=== PATIENT | female | born 2000 | race Two or more races ===

== ENCOUNTER 2024-01-05 03:30 | Emergency (ER) | payer MEDICAID, SELFPAY ==
[2024-01-05 03:31] VITALS: BMI 28.3
[2024-01-05 03:36] VITALS: BP 104/71; PULSE 81; RESP 18; TEMP 36.6; O2SAT 97
--- NOTE | 2024-01-05 03:50 | EKG_ITS ---
[facility] Test Date: 2024-01-05 Pat Name: DEANDRE PENNINGTON Department: Room: - Gender: Female [employer]: : 2000 Requested By: Stefan Sebastian Order Number: [id number] Reading MD: Stefan Sebastian Measurements Intervals Rhine Rate: 83 P: 63 CT: 145 QRS: 61 QRSD: 85 T: 11 QT: 356 QTc: 420 Interpretive Statements SINUS RHYTHM NONSPECIFIC T-WAVE ABNORMALITY No previous ECG available for comparison /store/S0/[id number]/ecg/[id number].pdf
--- NOTE | 2024-01-05 04:04 | PD.EDCHEST ---
ED Chest Pain RME/HPI General Chief Complaint: Back Pain/Injury Stated Complaint: BACK AND CHEST PAIN Time Seen by Provider: 01/05/24 03:50 Arrival date/time: 01/05/24 03:30 23F with no significant PMH presents to ED with several days of back and chest pain. Patient had back pain all throughout her (delivery 4 months ago), but starting yesterday had some CP that scared her. Patient denies SOB and URI symptoms. Limitations: no limitations Related Data Home Medications ?Medication ?Instructions ?Recorded ?Confirmed prenat.vits,mikey,[id number] 1 tab PO QDAY 02/24/20 08/11/23 Previous Rx's ?Medication ?Instructions ?Recorded ferrous sulfate 325 mg (65 mg 325 mg PO QDAY #30 tabs 04/27/20 iron) tablet Allergies Allergy/AdvReac Type Severity Reaction Status Date / Time No Known Allergies Allergy Verified 08/11/23 11:07 Past Medical History Past Medical History NEUROLOGIC: Negative Neurological Disorders or Seizures CARDIAC: Negative Cardiac Disorders or Congestive Heart Failure RESPIRATORY: Negative Chronic Obstructive Pulmonary Disease (COPD) or Asthma GASTROINTESTINAL: Negative Gastrointestinal Disorders, Hepatitis or Colorectal Cancer GENITOURINARY: Negative Genitourinary Disorders, Renal Disease or Prostate Cancer REPRODUCTIVE: Negative Breast Cancer or Testicular Cancer MUSCULOSKELETAL: Negative Musculoskeletal Disorders or Bone Cancer ENDOCRINE: Negative Endocrine Disorders, Diabetes Mellitus Type 1, Diabetes Mellitus Type 2 or Hypothyroidism HEMATOLOGIC: Positive Blood Disorders and Anemia PSYCHO/SOCIAL: Negative Depression or Anxiety OTHER HISTORY: Negative Hospitalization, Autoimmune Disease, Down Syndrome, Developmental Delay, Shingles, Falls, Blood Transfusions, Blood Transfusion Reaction, Anesthesia Reactions, Organ Transplant, Chemotherapy, Radiation Therapy, Hyperbaric Therapy, MRSA, VRSA, Vancomycin-Resistant Enterococci, Human Immunodeficiency Virus (HIV), Chicken Pox, Measles, Mumps, Rubella ([place] Measles), Pertussis, Clostridium Difficile, Cancer, Breast Cancer, Cervical Cancer, Colorectal Cancer, Lung Cancer, Ovarian Cancer, Prostate Cancer or Testicular Cancer Family History FAMILY HISTORY: Positive Family Cardiac Disorders (father-HTN); Negative Family Psychiatric Problems, Family Respiratory Disorders, Family Gastrointestinal Problems, Family Cancer, Family Surgery or Family Anesthesia Reaction Surgical History SURGICAL: Negative Section or Organ Transplant Social History SMOKING STATUS: Never smoker SECOND HAND EXPOSURE: No SUBSTANCE USE: does not use ED Exam General Limitations: Present no limitations General appearance: Present alert and in no apparent distress Head Head exam: Present atraumatic Eye Eye exam: Present normal appearance, PERRL and EOMI ENT ENT exam: Present normal exam, normal oropharynx and mucous membranes moist Neck Neck exam: Present normal inspection, full ROM and trachea midline Chest Chest inspection: Present normal inspection and symmetric chest wall rise Respiratory Respiratory exam: Present normal lung sounds bilaterally Cardiovascular Cardiovascular exam: Present regular rate, normal rhythm and normal heart sounds Abdominal Exam Abdominal exam: Present soft and normal bowel sounds Extremities Exam Extremities exam: Present normal inspection and full ROM Back Exam Back exam: Present normal inspection and full ROM Neurological Exam Neurological exam: Present alert, oriented X3 and CN II-XII intact Psychiatric Psychiatric exam: Present normal affect and anxious (mild) Skin Skin exam: Present warm, dry, intact and normal color Course Quality Measures none Orders Category Date Time Status EKG (ED ONLY) *Do not use* NOW Care 01/05/24 03:50 Completed EKG (ED Only) Stat Exams 01/05/24 03:50 Draft Vital Signs Vital signs: Vital Signs Temperature 98 F 01/05/24 03:36 Pulse Rate 81 01/05/24 03:36 Respiratory Rate 18 01/05/24 03:36 Blood Pressure 104/71 01/05/24 03:36 Pulse Oximetry (%) 97 01/05/24 03:36 Oxygen Delivery Method Room Air 01/05/24 03:36 O2 at 97% on RA and WNLs Chest Pain MDM Narrative MDM Narrative:: 23F with no significant PMH presents to ED with several days of back and chest pain. Patient had back pain all throughout her (delivery 4 months ago), but starting yesterday had some CP that scared her. Patient denies SOB and URI symptoms. Physical exam reveals clear ENT and lungs. No ab tenderness Patient is afebrile, alert, but mildly anxious. EKG is NSR. Patient declined further diagnostics and states she will return if worsening. Patient data External records reviewed:: [facility] previous records Clinical information provided by:: patient Social determinants that could affect healthcare access:: none Patient has the following chronic illnesses:: none How is presenting disease/condition affected by chronic disease/condition?: no chronic disease Evaluation data The following diagnostics were reviewed and interpreted by me:: EKG tracing(s) Lab and/or radiology exams considered but not ordered:: ordered Interpretation Summary: above Medications / Prescriptions Medications or Prescriptions considered but not ordered:: not ordered Medication administrations:: n/a Consultations Consultation(s) initiated? (list below): No Diagnosis Chest Pain Differential Diagnosis: fracture of rib, pneumothorax, stable angina, unstable angina pectoris, atypical chest pain, st elevation myocardial infarction, costochondritis, chest pain, biliary colic and other (PE) Most likely diagnosis given after review of the tests above:: atypical chest pain Admission Indicated Admission indicated?: not indicated Admission Request Was there a request for admission?: No Disposition Plan Disposition Plan: Discharge Discharge Attestation Discharge Attestation: The patient and all family members were given an opportunity to ask questions and understood the discharge instructions. Discharge instructions specifically effects, indications for sooner follow up or return to the emergency department, and the expected course of current diagnosis. Patient condition: Stable Discharge Plan Plan Patient Disposition: HOME (Self Care) Disposition Comment: Stable Prescriptions/Referrals Prescriptions/Med Rec: No Action prenat.vits,mikey,[id number] Tablet 1 tab PO QDAY ferrous sulfate 325 mg (65 mg iron) tablet 325 mg PO QDAY Qty: 30 0RF Problem List Clinical Impression: Atypical chest pain Patient/Caregiver Discharge Instructions Education Materials: ED Chest Pain, Uncertain Cause Additional Instructions: Please follow-up with PCP within 24-48 hours and return immediately if symptoms worsen. Print Language: Spanish Stand Alone Forms: Patient Portal Info Letter FEMI/WILBER Supervising Physician FEMI/WILBER Supervising Physician: Dr. Gonzales
== END 2024-01-05 04:07 | disposition home or self-care (01) ==
LOC: SERX 04:11
PROVIDERS: Emergency Provider Emergency Medicine; PCP Family Medicine
DX: R07.89 Other chest pain (principal)
CPT/HCPCS: 93005; 99283